=== PATIENT | female | born 1960 | race Caucasian/White ===

== ENCOUNTER 2018-04-01 02:12 | Emergency (ER) | payer OTHER ==
[2018-04-01] MEDS ORDERED: NA CHLORIDE 0.9% 1,000 ML ONE (03:03)
[2018-04-01] MEDS ORDERED: ONDANSETRON 4 MG/2 ML VIAL ONE (03:03)
[2018-04-01] MEDS ORDERED: MORPHINE 4 MG/ML SYR ONE (03:03)
[2018-04-01 03:32] LABS: Absolute Lymphocytes (CBC) 1.4 K/uL (0.7-4.9); Absolute Monocytes 0.5 K/uL (0.1-1.3); Absolute Neutrophil 5.1 K/uL (1.8-8.0); Basophils % 0.4 % (0-1.3); Eosinophils % 3.6 % (0-4.4); Hematocrit 38.9 % (36.0-45.0); Lymphocytes % 19.4 % (15.3-44.8); MCH 31.1 pg (27.0-35.0); MCV 90.2 fL (80-100); MPV 9.1 fL (7.6-11.3); Monocytes % 6.4 % (3.3-12.3); RBC Red Blood Cell Count 4.31 M/uL (3.86-4.86)
[2018-04-01 03:42] LABS: Albumin 3.6 g/dL (3.4-5.0); Bilirubin Direct 0.1 mg/dL (0-0.2); Bilirubin Total 0.3 mg/dL (0.2-1.0); Potassium 3.8 mmol/L (3.5-5.1); Protein, Total 7.1 g/dL (6.4-8.2)
[2018-04-01 05:31] LABS: Urine Blood NEGATIVE (NEG); Urine Glucose NEGATIVE (NEG); Urine Protein NEGATIVE (NEG); Urine Specific Gravity 1.025 (1.005-1.030)
[2018-04-01 05:35] LABS: Urine Bacteria <20 /HPF (<20); Urine Culture Reflex Order NOT NEEDED; Urine RBC <5 /HPF (NONE SEEN)
--- NOTE | 2018-04-01 06:40 | ER ---
Nurse's Notes [facility] Name: Gwendolyn Odell Age: 57 yrs Sex: Female : 1960 Arrival Date: 04/01/2018 Time: 02:14 Bed 19 Private MD: Diagnosis: Acute cholecystitis Presentation: 04/01 02:43 Presenting complaint: Patient states: Epigastric pain radiating to back that began lp1 suddenly 2 hours ago, woke her from sleep; Denies any N/V, diarrhea, fever. Transition of care: patient was not received from another setting of care. Onset of symptoms was April 01, 2018 at 00:00. Risk Assessment: Do you want to hurt yourself or someone else? Patient reports no desire to harm self or others. Initial Sepsis Screen: Does the patient meet any 2 criteria? No. Patient's initial sepsis screen is negative. Does the patient have a suspected source of infection? No. Patient's initial sepsis screen is negative. Care prior to arrival: None. 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 - Social history:: Smoking status: Patient/guardian denies using tobacco. - Ebola Screening: : No symptoms or risks identified at this time. Screenin:47 Abuse screen: Denies threats or abuse. Denies injuries from another. Nutritional lp1 screening: No deficits noted. Tuberculosis screening: No symptoms or risk factors identified. Fall Risk None identified. Assessment: 02:46 General: Appears in no apparent distress. Behavior is calm, cooperative, appropriate lp1 for age. Pain: Complains of pain in epigastric area Pain radiates to back Pain currently is 6 out of 10 on a pain scale. Quality of pain is described as aching, Pain began 2 hours ago. Neuro: Level of Consciousness is awake, alert, obeys commands. Cardiovascular: Patient's skin is warm and dry. Respiratory: Respiratory effort is even, unlabored. GI: Abdomen is non-distended, Bowel sounds present X 4 quads. Abdomen is tender to palpation in epigastric area. : No signs and/or symptoms were reported regarding the genitourinary system. EENT: No signs and/or symptoms were reported regarding the EENT system. Derm: Skin is pink, warm \T\ dry. Musculoskeletal: Circulation, motion, and sensation intact. 04:00 Reassessment: Patient appears in no apparent distress at this time. Patient and/or lp1 family updated on plan of care and expected duration. Pain level reassessed. Patient resting, eyes closed, respirations unlabored. 04:56 Reassessment: Patient appears in no apparent distress at this time. No changes from lp1 previously documented assessment. Patient and/or family updated on plan of care and expected duration. Pain level reassessed. 06:00 Reassessment: Patient appears in no apparent distress at this time. Patient and/or lp1 family updated on plan of care and expected duration. Pain level reassessed. Patient is alert, oriented x 3, equal unlabored respirations, skin warm/dry/pink. Patient denies pain at this time. Vital Signs: 02:45 BP 147 / 64; Pulse 78; Resp 18; Temp 97.5(O); Pulse Ox 98% on R/A; Weight 74.84 kg; lp1 Height 5 ft. 2 in. (157.48 cm); Pain 6/10; 03:45 BP 121 / 56; Pulse 70; Resp 18; Pulse Ox 96% on R/A; lp1 04:30 BP 118 / 48; Pulse 71; Resp 18; Pulse Ox 98% on R/A; lp1 06:30 BP 125 / 56; Pulse 72; Resp 18; Pulse Ox 96% on R/A; lp1 02:45 Body Mass Index 30.18 (74.84 kg, 157.48 cm) lp1 ED Course: 02:14 Patient arrived in ED. es 02:40 Umer Carter MD is Attending Physician. pkl 02:42 Sandy Johnson, PINEDA is Primary Nurse. lp1 02:45 Triage completed. lp1 02:45 Arm band placed on left wrist. lp1 02:47 Patient has correct armband on for positive identification. Placed in gown. Bed in low lp1 position. Call light in reach. Pulse ox on. NIBP on. 03:17 Inserted saline lock: 20 gauge in right antecubital area, using aseptic technique. oe Blood collected. 04:56 No provider procedures requiring assistance completed. lp1 05:[address] via wheelchair. lp1 05:37 CT completed. Patient tolerated procedure well. Patient moved back from CT. kw1 05:37 CT Abd/Pelvis - W/Contrast In Process Unspecified. EDMS 06:35 IV discontinued, No redness/swelling at site. Pressure dressing applied. lp1 06:38 Jacob Rucker MD is Referral Physician. pkl Administered Medications: 03:17 Drug: NS 0.9% 1000 ml Route: IV; Rate: 125 ml/hr; Site: right antecubital; lp1 03:18 Drug: morphine 4 mg Route: IVP; Site: right antecubital; lp1 03:56 Follow up: Response: Pain is decreased lp1 03:18 Drug: Zofran 4 mg Route: IVP; Site: right antecubital; lp1 03:56 Follow up: Response: Nausea is decreased lp1 Outcome: 06:35 Discharged to home ambulatory, with significant other. lp1 06:35 Condition: good 06:35 Discharge instructions given to patient, Instructed on discharge instructions, follow up and referral plans. medication usage, Demonstrated understanding of instructions, follow-up care, medications, Prescriptions given X 2. 06:39 Discharge ordered by . pkl 06:44 Patient left the ED. lp1 Signatures: Dispatcher [employer] Umer Damico MD MD pkl uYn Collier Laura RN RN lp1 Shaka Stone Kimberly kw1
--- NOTE | 2018-04-01 06:40 | EDPHYS ---
Physician Documentation [facility] Name: Gwendolyn Odell Age: 57 yrs Sex: Female : 1960 Arrival Date: 04/01/2018 Time: 02:14 Bed 19 Private MD: ED Physician Umer Carter HPI: 04/01 02:54 This 57 yrs old Female presents to ER via Ambulatory with complaints of pkl Abdominal Pain. 02:54 The patient presents with abdominal pain in the upper abdomen. Onset: The pkl symptoms/episode began/occurred just prior to arrival, 2 hour(s) ago. The symptoms radiate to back. Associated signs and symptoms: Pertinent positives: nausea. 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 - Social history:: Smoking status: Patient/guardian denies using tobacco. - Ebola Screening: : No symptoms or risks identified at this time. ROS: 02:54 Eyes: Negative for injury, pain, redness, and discharge, ENT: Negative for injury, pkl pain, and discharge, Neck: Negative for injury, pain, and swelling, Cardiovascular: Negative for chest pain, palpitations, and edema, Respiratory: Negative for shortness of breath, cough, wheezing, and pleuritic chest pain. 02:54 Abdomen/GI: Positive for abdominal pain, nausea, of the epigastric area, right upper quadrant and left upper quadrant. 02:54 Back: Negative for pain at rest. 02:54 : Negative for urinary symptoms. 02:54 MS/extremity: Negative for acute changes. 02:54 Skin: Negative for rash. 02:54 Neuro: Negative for altered mental status. Exam: 02:54 Head/Face: Normocephalic, atraumatic. Eyes: Pupils equal round and reactive to light, pkl extra-ocular motions intact. Lids and lashes normal. Conjunctiva and sclera are non-icteric and not injected. Cornea within normal limits. Periorbital areas with no swelling, redness, or edema. ENT: Nares patent. No nasal discharge, no septal abnormalities noted. Tympanic membranes are normal and external auditory canals are clear. Oropharynx with no redness, swelling, or masses, exudates, or evidence of obstruction, uvula midline. Mucous membranes moist. Neck: Trachea midline, no thyromegaly or masses palpated, and no cervical lymphadenopathy. Supple, full range of motion without nuchal rigidity, or vertebral point tenderness. No Meningismus. Chest/axilla: Normal chest wall appearance and motion. Nontender with no deformity. No lesions are appreciated. Cardiovascular: Regular rate and rhythm with a normal S1 and S2. No gallops, murmurs, or rubs. Normal PMI, no JVD. No pulse deficits. Respiratory: Lungs have equal breath sounds bilaterally, clear to auscultation and percussion. No rales, rhonchi or wheezes noted. No increased work of breathing, no retractions or nasal flaring. 02:54 Abdomen/GI: Bowel sounds: normal, Palpation: soft, mild abdominal tenderness, in the right upper quadrant and left upper quadrant. 02:54 Back: Exam negative for acute changes. 02:54 : Exam negative for acute changes. 02:54 Musculoskeletal/extremity: Exam is negative for acute changes. 02:54 Skin: Exam negative for rash. 02:54 Neuro: Orientation: is normal, Mentation: is normal, Cranial nerves: grossly normal, Motor: is normal. Vital Signs: 02:45 BP 147 / 64; Pulse 78; Resp 18; Temp 97.5(O); Pulse Ox 98% on R/A; Weight 74.84 kg; lp1 Height 5 ft. 2 in. (157.48 cm); Pain 6/10; 03:45 BP 121 / 56; Pulse 70; Resp 18; Pulse Ox 96% on R/A; lp1 04:30 BP 118 / 48; Pulse 71; Resp 18; Pulse Ox 98% on R/A; lp1 06:30 BP 125 / 56; Pulse 72; Resp 18; Pulse Ox 96% on R/A; lp1 02:45 Body Mass Index 30.18 (74.84 kg, 157.48 cm) lp1 MDM: 02:40 Patient medically screened. pkl 06:01 Data reviewed: vital signs, nurses notes. pkl 06:33 Data reviewed: lab test result(s), radiologic studies, CT scan. ED course: Patient pkl feeling much better .Does not want to be admitted or have surgery at this time. Will follow up with Dr. Rucker or return if pain is worse. 04/01 02:53 Order name: Amylase, Serum; Complete Time: 03:57 pkl 04/01 02:53 Order name: Basic Metabolic Panel; Complete Time: 03:57 pkl 04/01 02:53 Order name: CBC with Diff; Complete Time: 03:57 pkl 04/01 02:53 Order name: Creatinine for Radiology; Complete Time: 03:57 pkl 04/01 02:53 Order name: Hepatic Function; Complete Time: 03:57 pkl 04/01 02:53 Order name: Lipase; Complete Time: 03:57 pkl 04/01 02:53 Order name: Urine Microscopic Only; Complete Time: 05:40 pkl 04/01 02:53 Order name: EKG; Complete Time: 02:54 pkl 04/01 02:53 Order name: Troponin (emerg Dept Use Only); Complete Time: 03:57 pkl 04/01 04:58 Order name: CT Abd/Pelvis - W/Contrast pkl 04/01 05:19 Order name: Urine Dipstick--Ancillary (enter results); Complete Time: 05:40 ms 04/01 02:53 Order name: IV Saline Lock; Complete Time: 03:17 pkl 04/01 02:53 Order name: Labs collected and sent; Complete Time: 03:17 pkl 04/01 02:53 Order name: Urine Dipstick-Ancillary (obtain specimen); Complete Time: 04:57 pkl 04/01 04:54 Order name: EKG - Nurse/Tech; Complete Time: 04:54 lp1 Administered Medications: 03:17 Drug: NS 0.9% 1000 ml Route: IV; Rate: 125 ml/hr; Site: right antecubital; lp1 03:18 Drug: morphine 4 mg Route: IVP; Site: right antecubital; lp1 03:56 Follow up: Response: Pain is decreased lp1 03:18 Drug: Zofran 4 mg Route: IVP; Site: right antecubital; lp1 03:56 Follow up: Response: Nausea is decreased lp1 Disposition: 04/01/18 06:39 Discharged to Home. Impression: Acute cholecystitis. - Condition is Stable. - Prescriptions for Ultram 50 mg Oral Tablet - take 1 tablet by ORAL route every 8 hours As needed; 20 tablet. Cipro 500 mg Oral Tablet - take 1 tablet by ORAL route every 12 hours for 7 days; 14 tablet. - Medication Reconciliation Form, Thank You Letter, Antibiotic Education, Prescription Opioid Use form. - Follow up: Jacob Rucker MD; When: 2 - 3 days; Reason: Re-evaluation by your physician. - Problem is new. - Symptoms are resolved. Signatures: Dispatcher [employer] EDMS Umer Carter MD MD pkl Sandy Johnson RN RN lp1 Corrections: (The following items were deleted from the chart) 06:44 06:39 04/01/2018 06:39 Discharged to Home. Impression: Acute cholecystitis. Condition lp1 is Stable. Forms are Medication Reconciliation Form, Thank You Letter, Antibiotic Education, Prescription Opioid Use. Follow up: Jacob Rucker; When: 2 - 3 days; Reason: Re-evaluation by your physician. Problem is new. Symptoms are resolved. pkl
--- NOTE | 2018-04-01 07:13 | EKG ---
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
--- NOTE | 2018-04-01 11:36 | RAD REPORT ---
EXAM DESCRIPTION: CTAbdomen Pelvis W Contrast - 04/01/2018 5:36 am CLINICAL HISTORY: Abdominal pain. ABD PAIN COMPARISON: No comparisons TECHNIQUE: Biphasic CT imaging of the abdomen and pelvis was performed with 100 ml non-ionic IV cont rast. All CT scans are performed using dose optimization technique as appropriate and may include automated exposure control or mA/KV adjustment according to patient size. FINDINGS: The lung bases are clear. The liver demonstrates a 12 mm cyst in the left lobe. No aggressive liver lesion or biliary dilatatio n. The gallbladder contains a large gallstone and demonstrates mild wall thickening and inflammatory changes in the inferior aspect of the gallbladder suggesting early acute cholecystitis. Spleen, pancr eas, adrenal glands and kidneys are within normal limits. No bowel obstruction, free air, free fluid or abscess. Small to moderate fat containing umbilical her abrahan is present. The appendix is normal. No evidence of significant lymphadenopathy. No suspicious bony findings. IMPRESSION: Cholelithiasis with evidence of acute cholecystitis.
== END 2018-04-01 06:44 | disposition home or self-care (01) ==
LOC: ER 02:12
DX: K81.9 Cholecystitis, unspecified (principal)
CPT/HCPCS: 36415; 74177; 80048; 80076; 81003; 81015; 82150; 83690; 84484; 85025; 93005; 96374; 96375; 99284; J2405; J7030; Q9967

== ENCOUNTER 2024-10-04 18:29 | Emergency (ER) | payer OTHER ==
--- OUTSIDE RECORDS SUMMARY | 2024-10-04 18:32 | XMS REPORT | Continuity of Care Document ---
Author Name Unknown Address [address] [facility] [place] [address] [facility] thconnect Address [address] [facility] [address] [place] [address] Care Team Providers Care Chief Dispatcher Service Name Role Phone CHELSIE DONNELLY Primary Care Physician Unavaila Campbell Bains Attending Clinician Unavailable NITO DISLA Attending Clinician Unavailable KINA ARGEULLES Attending Clinician Unavailable Kina Arguelles PA-C Attending Clinician [phone] Doctor Unassigned, Vega Attending Clinician U le Bruno RN, Faby Weber Attending Clinician Unavailab le Only, Ang Db Test Attending Clinician Unavailabl e EbraFrankie Romo Attending Clinician [phone] FRANKIE LOCKE Attending Clinician Unavailable Sabrina Reyes Attending Clinician [phone] Kristopher Winslow DO Attending Clinician [phone] Chelsie Kaur Attending Clinician [phone] KINA ARGUELLES Admitting Clinician Unavailable Payers Payer Name Policy Type Policy Number Effective Date Expirati on Date Source [facility] [id number] 2021 00:00:00 Problems Condition Name Condition Details Condition Category Status Onset Date Resolution Date Last Treatment Date Treating Clinician Comments Source Screening for colorectal cancer Screening for colorectal cancer Disease Active 2017-09 00:00: 00 Overview: Formattin g of this note might be different from the original. Added automatic ally from request for surgery [id number] [facility] Obesity (BMI 30-39.9) Obesity (BMI 30-39.9) Disease Active 04-27 00:00: 00 [facility] Calculus of gallbladde r without cholecysti tis without obstructio n Calculus of gallbladde r without cholecysti tis without obstructio n Disease Active 04-17 00:00: 00 Overview: Formattin g of this note might be different from the original. Added automatic ally from request for surgery [id number] [facility] Cholecysti tis Cholecysti tis Disease Active 04-09 00:00: 00 [facility] Umbilical hernia without obstructio n and without gangrene Umbilical hernia without obstructio n and without gangrene Disease Active 04-09 00:00: 00 [facility] Allergies, Adverse Reactions, Alerts Allergy Name Allergy Type Status Severity Reaction(s) Onset Date Inactive Date Treating Clinician Comments Source NO KNOWN ALLERGIE S Drug Class Active [facility] Social History Social Habit Start Date Stop Date Quantity Comments Source History SDOH Alcohol Frequency [facility] History SDOH Alcohol Std Drinks [facility] History SDOH Alcohol Binge [facility] Exposure to SARS-CoV-2 (event) 2022-07-09 00:00:00 2022-07-19 14:06:00 Not sure [facility] Tobacco use and exposure 2022-07-19 00:00:00 2022-07-19 00:00:00 Smokeless tobacco non-user [facility] Alcohol intake 2022-07-19 00:00:00 2022-07-19 00:00:00 Current drinker of alcohol (finding) [facility] Alcohol Comment 2019-07-16 00:00:00 2019-07-16 00:00:00 ocassionally [facility] Sex Ass[birth year] At 1960 00:00:00 1960 00:00:00 [facility] Smoking Status Start Date Stop Date Source Never smoked tobacco [facility] Medications Ordered Medication Name Filled Medication Name Start Date Stop Date Current Medication? Ordering Clinician Indication Dosage Frequency Signature (SIG) Comments Components Source flu vacc qs 2019-21, 6 mos up, (FLU VACCINE [id number] MOS UP, IM) 03-04 12:57: 51 Yes by Intramuscu lar route. [facility] methocarbam oL ([id number]-75 0) 750 mg tablet 03-04 00:00: 00 03-15 04:59 :00 No [id number] 750mg Take 1 tablet by mouth 4 (four) times daily for 10 days. [facility] flu vacc qs , 6 mos up, (FLU VACCINE [id number],6 MOS UP, IM) 2019-09 15:57: 14 Yes by Intramuscu lar route. [facility] Vital Signs Vital Name Observation Time Observation Value Comments S vianey Systolic blood pressure 2022-07-19 20:26:00 154 mm[Hg] [facility] Diastolic blood pressure 2022-07-19 20:26:00 81 mm[Hg] [facility] Heart rate 2022-07-19 20:25:00 83 /min [facility] Body temperature 2022-07-19 20:25:00 36.61 Lisa [facility] Respiratory rate 2022-07-19 20:25:00 18 /min [facility] Body height 2022-07-19 20:25:00 157.5 cm [facility] Body weight 2022-07-19 20:25:00 78.472 kg [facility] BMI 2022-07-19 20:25:00 31.64 kg/m2 [facility] Systolic blood pressure 2022-03-04 17:59:00 167 mm[Hg] [facility] Diastolic blood pressure 2022-03-04 17:59:00 82 mm[Hg] [facility] Heart rate 2022-03-04 17:57:00 69 [facility] 2022-03-04 17:57:00 37.06 Lisa [facility] Respiratory rate 2022-03-04 17:57:00 16 /min [facility] Body height 2022-03-04 17:57:00 157.5 cm [facility] Body weight 2022-03-04 17:57:00 76.658 kg [facility] BMI 2022-03-04 17:57:00 30.91 kg/m2 [facility] Oxygen saturation in Arterial blood by Pulse oximetry 2022-03-04 17:57:00 96 /min [facility] Body weight 2021-07-16 20:50:00 77.111 kg [facility] BMI 2021-07-16 20:50:00 31.09 kg/m2 [facility] Systolic blood pressure 2021-07-16 20:50:00 132 mm[Hg] [facility] Diastolic blood pressure 2021-07-16 20:50:00 82 mm[Hg] [facility] Heart rate 2021-07-16 20:50:00 85 /min [facility] Body temperature 2021-07-16 20:50:00 36.94 Lisa [facility] Respiratory rate 2021-07-16 20:50:00 18 /min [facility] Body height 2021-07-16 20:50:00 157.5 cm [facility] Procedures Procedure Date / Time Performed Performing Clinician Source CONSENT/REFUSAL FOR DIAGNOSIS AND TREATMENT 2022-08-13 16:56:11 Doctor Unassigned, Vega [facility] ASSIGNMENT OF BENEFITS 2022-07-19 20:08:10 Docto r Unassigned, Vega [facility] XR HIPS 2 VW LEFT 2022-03-04 [facility]:14[facility] TOMOSYNTHESIS BILATERAL 2021-08-14 15:49:00 [facility] ASSIGNMENT OF BENEFITS 2021-08-14 15:32:00 Docto r Unassigned, Vega [facility] DEXA AXIAL (HIP AND SPINE) 2021-07-24 16:58:25 Kina Arguelles [facility] ASSIGNMENT OF BENEFITS 2021-07-24 16:20:59 Docto r Unassigned, Vega [facility] FLU VACC ([id number]), 2-64 YRS, .5ML, IM, QUAD (FLUCELVAX) 2021-07-16 20:59:53 Kina Arguelles [facility] Encounters Start Date/Time End Date/Time Encounter Type Admission Type Attending Clinicians Care Facility Care Department Encounter ID Source 2024-10-02 10:29:01 Outpatient [facility] [id number] [facility] 2024-03-05 08:02:01 Outpatient [facility] [id number] [facility] 2023-07-22 15:00:00 2023-07-22 15:00:00 Outpatient NITO ABEL [facility] [id number] [facility] 2022-08-13 10:57:45 2022-08-13 23:59:00 Hospital Encounter Kina Arguelles [facility] 1..840.114 350.1.13.10 4.2.7.2.686 [id number] [facility] 2022-08-13 10:57:45 2022-08-13 23:59:00 Outpatient KINA MCKENNA [facility] [id number] [facility] 2022-08-13 00:00:00 2022-08-13 00:00:00 Orders Only Doctor Unassigned, Vega [facility] 1..840.114 350.1.13.10 4.2.7.2.686 [id number] [facility] 2022-07-19 14:30:00 2022-07-19 14:53:21 Outpatient KINA MCKENNA [facility] [id number] [facility] 2022-07-19 14:30:00 2022-07-19 14:53:21 Office Visit Blane Kina [facility] [id number] 350.1.13.10 4.2.7.2.686 [id number] [facility] 2022-07-19 00:00:00 2022-07-19 00:00:00 Orders Only Doctor Unassigned, Vega [facility] 1.114 350.1.13.10 4.2.7.2.686 [id number] [facility] 2022-04-08 00:00:00 2022-04-08 00:00:00 Letter (Out) Faby Bruno [facility] 1.114 350.1.13.10 4.2.7.2.686 [id number] [facility] 2022-04-07 10:15:00 2022-04-07 10:30:00 Laboratory Only Only, Ang Db Test Cornelia [facility] OFF[facility] 1.84.114 350.1.13.10 4.2.7.2.686 [id number] [facility] 2022-04-07 10:15:00 2022-04-07 10:15:00 Outpatient R FRANKIE LOCKE [facility] [id number] [facility] 2022-03-04 13:05:54 2022-03-04 23:59:00 Outpatient R FRANKIE LOCKE [facility] [id number] [facility] 2022-03-04 13:05:54 2022-03-04 23:59:00 Hospital Encounter Cornelia Replaced by [facility]AN?[facility] 1.84.114 350.1.13.10 4.2.7.2.686 [id number] [facility] 2022-03-04 13:20:00 2022-03-04 14:10:05 Urgent Care Cornelia Frankie Shelton, [facility] 1.2840.114 350.1.13.10 4.2.7.2.686 [id number] [facility] 2021-08-14 09:33:53 2021-08-14 23:59:00 [facility] [id number] [facility] 2021-08-14 09:20:00 2021-08-14 23:59:00 Hospital Encounter [facility] 1.2840.114 350.1.13.10 4.2.7.2.686 [id number] [facility] 2021-08-14 00:00:00 2021-08-14 00:00:00 Orders Only Doctor Unassigned, Vega [facility] 1.0.114 350.1.13.10 4.2.7.2.686 [id number] [facility] 2021-07-24 10:22:28 2021-07-24 23:59:00 [facility] [id number] [facility] 2021-07-24 10:22:28 2021-07-24 23:59:00 Hospital Encounter [facility] 1.0.114 350.1.13.10 4.2.7.2.686 [id number] [facility] 2021-07-24 00:00:00 2021-07-24 00:00:00 Orders Only Doctor Unassigned, Vega [facility] 1.840.114 350.1.13.10 4.2.7.2.686 [id number] [facility] 2021-07-16 14:30:00 2021-07-16 15:24:48 Outpatient R KINA ARGUELLES [facility] [id number] [facility] 2021-07-16 14:20:54 2021-07-16 15:24:[address] [facility].2.840.114 350.1.13.10 4.2.7.2.686 [id number] [facility] 2020-11-15 00:00:00 2020-11-15 00:00:00 Patient Outreach Kristopher Winslow [facility] 1.2.840.114 350.1.13.10 4.2.7.2.686 [id number] [facility] 2020-07-19 09:12:24 2020-07-19 23:59:00 Hospital Encounter Kina Arguelles [facility] 1.2.840.114 350.1.13.10 4.2.7.2.686 [id number] [facility] 2020-07-19 00:00:00 2020-07-19 00:00:00 Outpatient R KINA ARGUELLES [facility] [id number] [facility] 2020-07-16 15:43:17 2020-07-16 16:13:17 Office Visit Kina Arguelles [facility] Building 1.2.840.114 350.1.13.10 4.2.7.2.686 [id number] [facility] 2020-07-16 15:45:00 2020-07-16 15:45:00 [facility] [id number] [facility] 2019-11-12 00:00:00 2019-11-12 00:00:00 Patient Secure Msg Doctor Unassigned, Vega [facility] 1..840.114 350.1.13.10 4.2.7.2.686 [id number] [facility] 2019-11-12 00:00:00 2019-11-12 00:00:00 Patient Secure Chelsie Gongora [facility] 1..840.114 350.1.13.10 4.2.7.2.686 [id number] [facility]
[2024-10-04] MEDS ORDERED: MORPHINE 4 MG/ML SYR ONE (20:11)
[2024-10-04] MEDS ORDERED: ONDANSETRON 4 MG/2 ML VIAL ONE (20:11)
[2024-10-04 20:12] LABS: Absolute Lymphocytes (CBC) 1.4 K/uL (0.7-4.9); Absolute Monocytes 0.6 K/uL (0.1-1.3); Absolute Neutrophil 2.5 K/uL (1.8-8.0); Basophils % 0.4 % (0-1.3); Eosinophils % 0.6 % (0-4.4); Hematocrit 44.2 % (36.0-45.0); Hemoglobin 14.8 g/dL (12.0-15.0); Lymphocytes % 30.5 % (15.3-44.8); MCH 30.5 pg (27.0-35.0); MCHC 33.5 g/dL (32.0-36.0); MCV 91.1 fL (80-100); MPV 8.2 fL (7.6-11.3); Monocytes % 12.6 % (3.3-12.3); Neutrophils % 55.9 % (41.7-73.7); Nucleated Red Blood Cells % 0.2 % (0-0); Platelets 204 thou/uL (152-406); RBC Red Blood Cell Count 4.85 M/uL (3.86-4.86); Red Cell Distribution Width 13.1 % (12.1-15.2)
[2024-10-04 20:43] LABS: Albumin 3.4 g/dL (3.4-5.0); Albumin/Globulin Ratio 0.8 (1.1-1.8); Anion Gap 10.1 mEq/L (5.0-15.0); Bilirubin Total 0.3 mg/dL (0.2-1.0); Globulin 4.3 g/dL (2.3-3.5); Potassium 4.1 mEq/L (3.5-5.1); Protein, Total 7.7 g/dL (6.4-8.2); Sqamous Epithelial None Seen /HPF (None Seen); Troponin High Sensitivity 3.2 pg/mL (<58.9); Urine Bacteria <20 /HPF (<20); Urine Bilirubin NEGATIVE (Negative); Urine Blood Negative (Negative); Urine Clarity Extremely Turbid (Clear); Urine Color Yellow (Yellow); Urine Culture Reflex Order NOT NEEDED; Urine Glucose NEGATIVE (Negative); Urine Ketones 1+ (Negative); Urine Microscopic Reflex YN ORDER UMIC; Urine Mucus 4+ /HPF (None Seen); Urine Nitrite NEGATIVE (Negative); Urine Protein 1+ (Negative); Urine RBC <5 /HPF (None Seen); Urine Urobilinogen Normal (Normal); Urine WBC <5 /HPF (<5); Urine pH 5.5 (5.0-7.0)
--- NOTE | 2024-10-04 21:28 | RAD REPORT ---
EXAMINATION: CT ABDOMEN AND PELVIS WITH CONTRAST CLINICAL INDICATION: Abdominal pain TECHNIQUE: CT abdomen and pelvis was performed, after the administration of 100 cc Isovue-300.. Sagit jonathan and coronal reconstructions were obtained. One or more of the following dose reduction techniques were used: Automated exposure control, adjustment of the mA and kV according to patient si ze, and iterative reconstruction. Unless otherwise specified, incidental findings do not require dedicated imaging follow-up. [id number]. Oral contrast was not given which limits evaluation of bowel and appendix. COMPARISON: .2018 FINDINGS: Small hepatic cyst. Cholecystectomy. The spleen and pancreas appear unremarkable. Mild cortical thinning left kidney unchanged. Left upper quadrant varices unchanged Small adrenal masses without significant likely adenomas. Normal appendix. No adnexal mass. Fluid within nondilated small bowel. No evidence of diverticulitis. : IMPRESSION: Fluid within nondilated small bowel may indicate an enteritis
--- NOTE | 2024-10-04 21:44 | ER ---
Nurse's Notes [facility] Name: Gwendolyn Odell Age: 64 yrs Sex: Female : 1960 Arrival Date: 10/04/2024 Time: 18:29 Bed 6 Private MD: Campbell Trevino Diagnosis: Abdominal pain, Generalized;Other viral enteritis Presentation: 10/04 18:48 Chief complaint: Patient states: I am having abdominal pain that comes and goes. It jb4 feels like contractions. Coronavirus screen: At this time, the client does not indicate any symptoms associated with coronavirus-19. Ebola Screen: No symptoms or risks identified at this time. Initial Sepsis Screen: Does the patient meet any 2 criteria? HR > 90 bpm. Yes Does the patient have a suspected source of infection? No. Patient's initial sepsis screen is negative. Risk Assessment: Do you want to hurt yourself or someone else? Patient reports no desire to harm self or others. Onset of symptoms was October 04, 2024. Transition of care: patient was not received from another setting of care. 18:48 Method Of Arrival: Ambulatory jb4 18:48 Acuity: YAIMA 3 jb4 Triage Assessment: 18:49 General: Appears in no apparent distress. comfortable, Behavior is calm, cooperative, jb4 appropriate for age. Pain: Complains of pain in abdomen Pain does not radiate. Pain currently is 0 out of 10 on a pain scale. at worst was 8 out of 10 on a pain scale. Quality of pain is described as crampy. Neuro: Level of Consciousness is awake, alert, obeys commands, Oriented to person, place, time, situation. Cardiovascular: Patient's skin is warm and dry. Respiratory: Airway is patent Respiratory effort is even, unlabored, Respiratory pattern is regular, symmetrical. GI: Abdomen is flat, non-distended, Reports upper abdominal pain, diarrhea. Derm: Skin is intact, Skin is pink, warm \T\ dry. Musculoskeletal: Circulation, motion, and sensation intact. Range of motion: intact in all extremities. Historical: - Allergies: 18:49 No Known Allergies; jb4 - PMHx: 18:49 None; jb4 - PSHx: 18:49 Cholecystectomy; hernia repair; jb4 - Immunization history:: Adult Immunizations up to date. - Infectious Disease History:: Denies. - Social history:: Smoking status: Patient denies any tobacco usage or history of. Patient uses alcohol, occasionally. - Family history:: not pertinent. Screenin:51 [facility] ED Fall Risk Assessment (Adult) History of falling in the last 3 months, bm8 including since admission No falls in past 3 months (0 pts) Confusion or Disorientation No (0 pts) Intoxicated or Sedated No (0 pts) Impaired Gait No (0 pts) Mobility Assist Device Used No (0 pt) Altered Elimination No (0 pt) Score/Fall Risk Level 0 - 2 = Low Risk Oriented to surroundings, Maintained a safe environment, Educated pt \T\ family on fall prevention, incl call for assistance when getting out of bed, Provided non-skid footwear, Hourly rounding (assess needs \T\ fall precautionary measures) done, Used ambulatory aids as needed (educated on \T\ assisted with), Used gait belt as appropriate. Abuse screen: Denies threats or abuse. Nutritional screening: No deficits noted. Tuberculosis screening: No symptoms or risk factors identified. Assessment: 19:51 General: Appears in no apparent distress. comfortable, Behavior is calm, cooperative, bm8 appropriate for age. Pain: Complains of pain in right upper quadrant and left upper quadrant Pain currently is 8 out of 10 on a pain scale. Quality of pain is described as aching, crampy. Neuro: No deficits noted. Level of Consciousness is awake, alert, obeys commands, Oriented to person, place, time, situation, Appropriate for age. Cardiovascular: Denies chest pain, Heart tones S1 S2 present Capillary refill < 3 seconds in bilateral fingers Patient's skin is warm and dry. Respiratory: Airway is patent Trachea midline Respiratory effort is even, unlabored, Respiratory pattern is regular, symmetrical, Breath sounds are clear bilaterally. GI: Abdomen is flat, non-distended, Bowel sounds present X 4 quads. Abdomen is tender to palpation in right upper quadrant and left upper quadrant Reports upper abdominal pain, Pain is 8 out of 10 on a pain scale. : No signs and/or symptoms were reported regarding the genitourinary system. EENT: No signs and/or symptoms were reported regarding the EENT system. Derm: No signs and/or symptoms reported regarding the dermatologic system. Musculoskeletal: No signs and/or symptoms reported regarding the musculoskeletal system. 20:56 Reassessment: Patient appears in no apparent distress at this time. Patient and/or bm8 family updated on plan of care and expected duration. Pain level reassessed. Patient is alert, oriented x 3, equal unlabored respirations, skin warm/dry/pink. Patient states feeling better. Patient states symptoms have improved. 22:08 Reassessment: Patient appears in no apparent distress at this time. Patient and/or bm8 family updated on plan of care and expected duration. Pain level reassessed. Patient is alert, oriented x 3, equal unlabored respirations, skin warm/dry/pink. Patient states feeling better. Patient states symptoms have improved. Vital Signs: 18:48 BP 135 / 99; Pulse 115; Resp 16; Temp 98.7(O); Pulse Ox 95% on R/A; Weight 71.21 kg jb4 (R); Height 5 ft. 2 in. (R); Pain 0/10; 19:41 BP 157 / 95; Pulse 102; Resp 18; Temp 98.9; Pulse Ox 96% ; hw 20:56 BP 151 / 85; Pulse 60; Resp 17; Temp 97.9; Pulse Ox 95% ; Pain 5/10; bm8 22:08 BP 139 / 69; Pulse 78; Resp 17; Temp 97.9; Pulse Ox 96% ; Pain 2/10; bm8 18:48 Body Mass Index 28.72 (71.21 kg, 157.48 cm) jb4 18:48 Pain Scale: Adult jb4 20:56 Pain Scale: Adult bm8 22:08 Pain Scale: Adult bm8 [place] Coma Score: 19:51 Eye Response: spontaneous(4). Motor Response: obeys commands(6). Verbal Response: bm8 oriented(5). Total: 15. 20:56 Eye Response: spontaneous(4). Motor Response: obeys commands(6). Verbal Response: bm8 oriented(5). Total: 15. 22:08 Eye Response: spontaneous(4). Motor Response: obeys commands(6). Verbal Response: bm8 oriented(5). Total: 15. ED Course: 18:31 Patient arrived in ED. mr 18:31 Campbell Trevino DO is Private Physician. mr 18:41 Rayshawn Palomares MD is Attending Physician. rt 18:49 Triage completed. jb4 18:49 Arm band placed on right wrist. jb4 19:41 EKG done, by ED staff. hw 19:45 Raffi Reed, RN is Primary Nurse. bm8 19:51 Patient has correct armband on for positive identification. Client placed on continuous bm8 cardiac and pulse oximetry monitoring. NIBP monitoring applied. classroom monitor on. Pulse ox on. NIBP on. Door closed. Noise minimized. Warm blanket given. Pillow given. Verbal reassurance given. Head of bed elevated. 19:51 No provider procedures requiring assistance completed. Patient maintains SpO2 bm8 saturation greater than 95% on room air. 20:02 Inserted saline lock: 20 gauge in left antecubital area, using aseptic technique. Blood hw collected. Flushed with 10 mL NS. 20:02 CBC with Diff Sent. hw 20:02 CMP Sent. hw 20:02 Lipase Sent. hw 20:02 Urinalysis w/ reflexes Sent. hw 20:16 Troponin High Sensitivity Sent. 20:33 Attending Physician role handed off by Rayshawn Palomares MD [facility] 20:33 Carlos Chawla MD is Attending Physician. [facility] 21:04 CT Abd/Pelvis - IV Contrast Only In Process Unspecified. EDMS 21:43 Campbell Trevino DO is Referral Physician. [facility] 22:08 Provided Education on: post er care. bm8 22:08 IV discontinued, intact, bleeding controlled, No redness/swelling at site. Pressure bm8 dressing applied. Administered Medications: 20:16 Drug: morphine IVP or IV 4 mg IVP once over 4 mins Route: IVP; Infused Over: 4 mins; bm8 Site: left antecubital; 20:54 Follow up: Response: No adverse reaction bm8 20:16 Drug: Ondansetron IVP 4 mg IVP once; over 2 minutes Route: IVP; Site: left antecubital; bm8 20:54 Follow up: Response: No adverse reaction bm8 22:08 Drug: Ciprofloxacin PO 500 mg PO once Route: PO; bm8 22:08 Follow up: Response: Medication Administered at Departure bm8 Medication: 19:51 VIS not applicable for this client. bm8 Outcome: 21:44 Discharge ordered by . [facility] 22:08 Discharged to home ambulatory, bm8 22:08 Condition: stable 22:08 Discharge instructions given to patient, Instructed on discharge instructions, follow up and referral plans. no drinking with medication, no driving heavy equipment, medication usage, safety practices, Demonstrated understanding of instructions, follow-up care, medications, Prescriptions given X 4, 22:10 Patient left the ED. bm8 Signatures: Dispatcher [employer] EDMS Carlos Chawla MD MD cha Rivera, Mary, Reg Reg mr PrabhuCas, RN RN jb4 Rayshawn Palomares MD MD rt McDonald, Brad RN RN bm8 Anisha Chirinos Corrections: (The following items were deleted from the chart) 18:50 18:49 Social history: Smoking status: Patient denies any tobacco usage or history of. jb4 jb4
--- NOTE | 2024-10-04 21:44 | EDPHYS ---
Physician Documentation [facility] Name: Gwendolyn Odell Age: 64 yrs Sex: Female : 1960 Arrival Date: 10/04/2024 Time: 18:29 Bed 6 Private MD: Uriel [facility] ED Physician Carlos Chawla HPI: 10/04 20:11 This 64 yrs old Female presents to ER via Ambulatory with complaints of rt Abdominal Pain. 20:11 Patient presents to the ED with intermittent epigastric pain described as crampy with rt associated nausea without vomiting after lunch today. States that the pain had resolved at the time of arrival to the emergency department. Denies other acute complaints at this time, symptoms are moderate in severity, no other aggravating alleviating factors.. Historical: - Allergies: 18:49 No Known Allergies; jb4 - PMHx: 18:49 None; jb4 - PSHx: 18:49 Cholecystectomy; hernia repair; jb4 - Immunization history:: Adult Immunizations up to date. - Infectious Disease History:: Denies. - Social history:: Smoking status: Patient denies any tobacco usage or history of. Patient uses alcohol, occasionally. - Family history:: not pertinent. ROS: 20:11 Constitutional: Negative for fever, chills, and weight loss, Cardiovascular: Negative rt for chest pain, palpitations, and edema, Respiratory: Negative for shortness of breath, cough, wheezing, and pleuritic chest pain, MS/Extremity: Negative for injury and deformity, Skin: Negative for injury, rash, and discoloration, Neuro: Negative for headache, weakness, numbness, tingling, and seizure, 20:11 Abdomen/GI: Positive for abdominal pain, nausea, Negative for vomiting, Exam: 20:11 Constitutional: This is a well developed, well nourished patient who is awake, alert, rt and in no acute distress. Head/Face: Normocephalic, atraumatic. Chest/axilla: Normal chest wall appearance and motion. Nontender with no deformity. No lesions are appreciated. Cardiovascular: Regular rate and rhythm with a normal S1 and S2. No gallops, murmurs, or rubs. Normal PMI, no JVD. No pulse deficits. Respiratory: Lungs have equal breath sounds bilaterally, clear to auscultation and percussion. No rales, rhonchi or wheezes noted. No increased work of breathing, no retractions or nasal flaring. Abdomen/GI: Soft, non-tender, with normal bowel sounds. No distension or tympany. No guarding or rebound. No evidence of tenderness throughout. Skin: Warm, dry with normal turgor. Normal color with no rashes, no lesions, and no evidence of cellulitis. MS/ Extremity: Pulses equal, no cyanosis. Neurovascular intact. Full, normal range of motion. Neuro: Awake and alert, GCS 15, oriented to person, place, time, and situation. Cranial nerves II-XII grossly intact. Motor strength 5/5 in all extremities. Sensory grossly intact. Cerebellar exam normal. Normal gait. 20:11 ECG was reviewed by the Attending Physician. Vital Signs: 18:48 BP 135 / 99; Pulse 115; Resp 16; Temp 98.7(O); Pulse Ox 95% on R/A; Weight 71.21 kg jb4 (R); Height 5 ft. 2 in. (R); Pain 0/10; 19:41 BP 157 / 95; Pulse 102; Resp 18; Temp 98.9; Pulse Ox 96% ; hw 20:56 BP 151 / 85; Pulse 60; Resp 17; Temp 97.9; Pulse Ox 95% ; Pain 5/10; bm8 22:08 BP 139 / 69; Pulse 78; Resp 17; Temp 97.9; Pulse Ox 96% ; Pain 2/10; bm8 18:48 Body Mass Index 28.72 (71.21 kg, 157.48 cm) jb4 18:48 Pain Scale: Adult jb4 20:56 Pain Scale: Adult bm8 22:08 Pain Scale: Adult bm8 Harrold Coma Score: 19:51 Eye Response: spontaneous(4). Motor Response: obeys commands(6). Verbal Response: bm8 oriented(5). Total: 15. 20:56 Eye Response: spontaneous(4). Motor Response: obeys commands(6). Verbal Response: bm8 oriented(5). Total: 15. 22:08 Eye Response: spontaneous(4). Motor Response: obeys commands(6). Verbal Response: bm8 oriented(5). Total: 15. MDM: 19:35 Medical Screening Exam initiated rt 10/04 19:36 Order name: CBC with Diff; Complete Time: 20:34 rt 10/04 19:36 Order name: CMP; Complete Time: 21:06 rt 10/04 19:36 Order name: Lipase; Complete Time: 21:06 rt 10/04 19:36 Order name: Urinalysis w/ reflexes; Complete Time: 21:06 rt 10/04 19:36 Order name: Troponin High Sensitivity; Complete Time: 21:06 rt 10/04 19:36 Order name: CT Abd/Pelvis - IV Contrast Only; Complete Time: 21:41 rt 10/04 19:36 Order name: EKG; Complete Time: 19:36 rt 10/04 19:36 Order name: IV Saline Lock; Complete Time: 19:54 rt 10/04 19:36 Order name: Labs collected and sent; Complete Time: 19:54 rt 10/04 19:36 Order name: EKG - Nurse/Tech; Complete Time: 19:54 rt EC:11 Rate is 93 beats/min. Rhythm is regular, Normal Sinus Rhythm with No ectopy. QRS Maple rt is Normal. NC interval is normal. QRS interval is normal. QT interval is normal. No Q waves. No ST changes noted. Interpreted by me. Administered Medications: 20:16 Drug: morphine IVP or IV 4 mg IVP once over 4 mins Route: IVP; Infused Over: 4 mins; bm8 Site: left antecubital; 20:54 Follow up: Response: No adverse reaction bm8 20:16 Drug: Ondansetron IVP 4 mg IVP once; over 2 minutes Route: IVP; Site: left antecubital; bm8 20:54 Follow up: Response: No adverse reaction bm8 22:08 Drug: Ciprofloxacin PO 500 mg PO once Route: PO; bm8 22:08 Follow up: Response: Medication Administered at Departure bm8 Disposition Summary: 10/04/24 21:44 Discharge Ordered Notes: Location: Home rasheed Problem: new rasheed Symptoms: have improved rasheed Condition: Stable rasheed Diagnosis - Abdominal pain, Generalized rasheed - Other viral enteritis rasheed Followup: rasheed - With: Campbell Trevino, DO - When: 1 - 2 days - Reason: Recheck today's complaints, Continuance of care, Re-evaluation by your physician Discharge Instructions: - Discharge Summary Sheet rasheed - Abdominal Pain, Adult rasheed - Viral Gastroenteritis, Adult rasheed - Viral Gastroenteritis, Adult, Pool-je-Hume rasheed - Abdominal Pain, Adult, [id number] Forms: - Medication Reconciliation Form [facility] - Antibiotic Education rasheed - Prescription Opioid Use rasheed - Patient Portal Instructions [facility] - Leadership Thank You Letter [facility] Prescriptions: - ondansetron 4 mg Oral Tablet,disintegrating - take 1 tablet ORAL route daily for 5 days prn nausea / vomiting; 20 tablet; rasheed Refills: 0, Product Selection Permitted - Pepcid 20 mg Oral tablet - take 1 tablet ORAL route every 12 hours for 21 days; 42 tablet; Refills: 0, [facility] Product Selection Permitted - Cipro 500 mg Oral tablet - take 1 tablet ORAL route every 12 hours for 3 days; 6 tablet; Refills: 0, [facility] Product Selection Permitted - dicyclomine 20 mg Oral tablet - take 1 tablet ORAL route 4 times per day; 28 tablet; Refills: 0, Product [facility] Selection Permitted Signatures: Dispatcher [employer] EDCarlos Hoskins MD MD cha Bryson, James, RN RN jb4 Rayshawn Palmoares MD MD rt Raffi Reed, RN RN bm8 Corrections: (The following items were deleted from the chart) 18:50 18:49 Social history: Smoking status: Patient denies any tobacco usage or history of. jb4 jb4 19:36 19:36 CBC+H.LAB.BRZ ordered. EDMS EDMS 19:36 19:36 COMPREHENSIVE METABOLIC PANEL+C.LAB.BRZ ordered. EDMS EDMS 19:36 19:36 LIPASE+C.LAB.BRZ ordered. EDMS EDMS 19:36 19:36 Urinalysis+U.LAB.BRZ ordered. EDMS EDMS 19:36 19:36 Troponin High Sensitivity+C.LAB.BRZ ordered. EDMS EDMS
[2024-10-04] MEDS ORDERED: CIPROFLOXACIN HCL 500 MG TAB ONE (22:02)
[2024-10-05 06:36] VITALS: TEMP 97.9
[2024-10-05 06:40] VITALS: BP 139/69; O2SAT 96
== END 2024-10-04 22:10 | disposition home or self-care (01) ==
LOC: ER 18:29
DX: A08.39 Other viral enteritis (principal)
CPT/HCPCS: 85025; 81001; 36415; 84484; 83690; 80053; 74177; 96375; 96374; 99285; Q9967; J2405; 93005